=== PATIENT | male | born 1985 | race Caucasian/White ===

== ENCOUNTER 2022-01-04 19:50 | Emergency (ER) | payer SELFPAY ==
[2022-01-04 20:44] VITALS: BP 141/88
== END 2022-01-05 07:00 | disposition left against medical advice (07) ==
LOC: ED 19:50
DX: R10.9 Unspecified abdominal pain (principal); Z53.21 Procedure and treatment not carried out due to patient leaving prior to being seen by health care provider

== ENCOUNTER 2022-01-05 14:11 | Inpatient (IN) | payer SELFPAY ==
[2022-01-05] MEDS ORDERED: SODIUM CHLORIDE 0.9% 1000 ML IV SOLN IV ONE (14:32)
[2022-01-05] MEDS ORDERED: PIPERACIL/TAZOBACTA 4.5/NS 100 4.5 GM/100 ML VIAL IV ONE (14:45)
[2022-01-05] MEDS ORDERED: KETOROLAC 30 MG/1 ML INJ IV ONE (14:46)
[2022-01-05] MEDS ORDERED: ONDANSETRON 4 MG/2 ML INJ IV ONE (14:46)
[2022-01-05] MEDS ORDERED: MORPHINE 4 MG/1 ML INJ IV ONE (14:46)
--- NOTE | 2022-01-05 14:48 | Emergency Department Report ---
ED Abdominal Pain HPI - General Chief Complaint: Abdominal Pain Stated Complaint: SENT OVER BY DOCTOR W/REFERRAL Source: patient Mode of arrival: Ambulatory Limitations: Language Barrier - History of Present Illness Initial Comments: 36-year-old Grenadian-speaking male with no significant past medical or surgical history presents to the hospital complaining of right lower quadrant pain progressively worsening since yesterday. Pain is constant, moderate to severe, worse with palpation, no alleviating factors reported. Positive nausea, vomiting, diarrhea, and fever. Patient was sent here by his primary care doctor for suspicion for appendicitis - Related Data Allergies Allergy/AdvReac Type Severity Reaction Status Date / Time No Known Allergies Allergy Verified 01/05/22 14:28 ED Review of Systems ROS: Stated complaint: SENT OVER BY DOCTOR W/REFERRAL Other details as noted in HPI Comment: All other systems reviewed and negative ED Past Medical Hx - Past Medical History Previous Medical History?: No ED Physical Exam - General Limitations: No Limitations - Other Other exam information: General: Mild discomfort secondary to pain Head: Atraumatic Eyes: normal appearance ENT: Moist mucous membranes Neck: Normal appearance, no midline tenderness Chest: Clear to auscultation bilaterally CV: Regular rate and rhythm Abdomen: Soft, normal bowel sounds, right lower quadrant tenderness. No rebound or guarding Back: Normal inspection Extremity: Normal inspection, full range of motion Neuro: Alert O x 3, no facial asymmetry, speech clear, no gross motor sensory deficit Psych: Appropriate behavior Skin: No rash ED Course Vital Signs 01/05/22 14:25 Temperature 100.2 F H Pulse Rate 117 H Respiratory 20 Rate Blood Pressure 122/85 O2 Sat by Pulse 98 Oximetry - Consultations Consultation #1: 01/05/22 17:01 case d/w Dr Esteves surgeon. Plan to operate tomorrow. npo after midnight ED Medical Decision Making - Lab Data Result diagrams: 01/05/22 14:49 01/05/22 14:49 Lab Results 01/05/22 01/05/22 01/05/22 Range/Units 14:49 14:49 14:49 WBC 16.0 H (4.5-11.0) K/mm3 RBC 4.57 (3.65-5.03) M/mm3 Hgb 14.2 (11.8-15.2) gm/dl Hct 41.7 (35.5-45.6) % MCV 91 (84-94) fl MCH 31 (28-32) pg MCHC 34 (32-34) % RDW 12.5 L (13.2-15.2) % Plt Count 277 (140-440) K/mm3 Lymph % (Auto) 5.8 L (13.4-35.0) % [place] % (Auto) 9.9 H (0.0-7.3) % Eos % (Auto) 0.0 (0.0-4.3) % Baso % (Auto) 0.3 (0.0-1.8) % Lymph # (Auto) 0.9 L (1.2-5.4) K/mm3 [place] # (Auto) 1.6 H (0.0-0.8) K/mm3 Eos # (Auto) 0.0 (0.0-0.4) K/mm3 Baso # (Auto) 0.0 (0.0-0.1) K/mm3 Seg Neutrophils % 84.0 H (40.0-70.0) % Seg Neutrophils # 13.4 H (1.8-7.7) K/mm3 Sodium 134 L (137-145) mmol/L Potassium 3.9 (3.6-5.0) mmol/L Chloride 97.8 L (98-107) mmol/L Carbon Dioxide 25 (22-30) mmol/L Anion Gap 15 mmol/L BUN 10 (9-20) mg/dL Creatinine 0.7 L (0.8-1.3) mg/dL Estimated GFR > 60 ml/min BUN/Creatinine Ratio 14 % Glucose 122 H (75-100) mg/dL Lactic Acid 1.80 (0.7-2.0) mmol/L Calcium 9.5 (8.4-10.2) mg/dL Total Bilirubin 3.20 H (0.1-1.2) mg/dL AST 18 (5-40) units/L ALT 31 (7-56) units/L Alkaline Phosphatase 110 (35-129) units/L Total Protein 7.8 (6.3-8.2) g/dL Albumin 4.9 (3.9-5) g/dL Albumin/Globulin Ratio 1.7 % - Radiology Data Radiology results: report reviewed CT ABDOMEN AND PELVIS WITH CONTRAST INDICATION / CLINICAL INFORMATION: rlq pain. TECHNIQUE: Axial CT images were obtained through the abdomen and pelvis after 100 cc of Omnipaque 300 IV contrast. Sagittal and coronal reformatted images. All CT scans at this location are performed using CT dose reduction for ALARA by means of automated exposure control. COMPARISON: None available. FINDINGS: LOWER CHEST: No significant abnormality. LIVER: No significant abnormality. GALLBLADDER: No significant abnormality. BILE DUCTS: No significant abnormality. PANCREAS: No significant abnormality. SPLEEN: No significant abnormality. ADRENALS: No significant abnormality. RIGHT KIDNEY and URETER: No significant abnormality. LEFT KIDNEY and URETER: No significant abnormality. STOMACH and SMALL BOWEL: No significant abnormality. COLON: No significant abnormality. APPENDIX: The appendix is dilated up to 1.1 cm with mucosal enhancement and surrounding inflammatory change. The appendix is located medial to the cecum at the level of S1. No evidence for rupture at this time. PERITONEUM: No free fluid. No free air. No fluid collection. LYMPH NODES: No significant adenopathy. AORTA and ARTERIES: No significant abnormality. IVC and VEINS: No significant abnormality. URINARY BLADDER: No significant abnormality. REPRODUCTIVE ORGANS: No significant abnormality. ADDITIONAL FINDINGS: None. SKELETAL SYSTEM: No significant abnormality. IMPRESSION: Acute appendicitis. No evidence for rupture at this time. - Medical Decision Making 36-year-old male with no significant past medical history presents the hospital with right lower quadrant pain with CT findings of acute appendicitis. Patient treated with Zofran, IV fluids, and pain medication. Case discussed with surgeon for admission. Translation service used to discuss diagnosis, treatment in the ED, and plan for admission. No sign of severe sepsis or septic shock Critical Care Time: No Critical care attestation.: If time is entered above; I have spent that time in minutes in the direct care of this critically ill patient, excluding procedure time. ED Disposition Clinical Impression: Acute appendicitis Disposition: ADMITTED INPATIENT Is pt being admited?: Yes Condition: Stable Time of Disposition: 16:38 (Dr Wilburn)
[2022-01-05 15:19] LABS: Basophils % (Auto) 0.3 % (0.0-1.8); Hematocrit 41.7 % (35.5-45.6); Hemoglobin 14.2 gm/dl (11.8-15.2); Lymphocytes # (Auto) 0.9 K/mm3 (1.2-5.4); Lymphocytes % (Auto) 5.8 % (13.4-35.0); Mean Corpuscular HGB Conc 34 % (32-34); Mean Corpuscular Volume 91 fl (84-94); Monocytes # (Auto) 1.6 K/mm3 (0.0-0.8); Monocytes % (Auto) 9.9 % (0.0-7.3); Platelet Count 277 K/mm3 (140-440); Red Blood Count 4.57 M/mm3 (3.65-5.03); Red Cell Distribution Width 12.5 % (13.2-15.2)
[2022-01-05 15:46] LABS: Alanine Aminotransferase 31 units/L (7-56); Albumin 4.9 g/dL (3.9-5); Blood Urea Nitrogen 10 mg/dL (9-20); Calcium 9.5 mg/dL (8.4-10.2); Hemolysis Index 28
[2022-01-05 15:48] LABS: BUN/Creatinine Ratio 14
--- NOTE | 2022-01-05 16:27 | Cat Scan Report ---
CT ABDOMEN AND PELVIS WITH CONTRAST INDICATION / CLINICAL INFORMATION: rlq pain. TECHNIQUE: Axial CT images were obtained through the abdomen and pelvis after 100 cc of Omnipaque 300 IV contras t. Sagittal and coronal reformatted images. All CT scans at this location are performed using CT dose reduction for ALARA by means of automated exposure control. COMPARISON: None available. FINDINGS: LOWER CHEST: No significant abnormality. LIVER: No significant abnormality. GALLBLADDER: No significant abnormality. BILE DUCTS: No significant abnormality. PANCREAS: No significant abnormality. SPLEEN: No significant abnormality. ADRENALS: No significant abnormality. RIGHT KIDNEY and URETER: No significant abnormality. LEFT KIDNEY and URETER: No significant abnormality. STOMACH and SMALL BOWEL: No significant abnormality. COLON: No significant abnormality. APPENDIX: The appendix is dilated up to 1.1 cm with mucosal enhancement and surrounding inflammatory change. The appendix is located medial to the cecum at the level of S1. No evidence for rupture at th is time. PERITONEUM: No free fluid. No free air. No fluid collection. LYMPH NODES: No significant adenopathy. AORTA and ARTERIES: No significant abnormality. IVC and VEINS: No significant abnormality. URINARY BLADDER: No significant abnormality. REPRODUCTIVE ORGANS: No significant abnormality. ADDITIONAL FINDINGS: None. SKELETAL SYSTEM: No significant abnormality. IMPRESSION: Acute appendicitis. No evidence for rupture at this time. CRITICAL RESULT: Time of Discovery (LICENSED SALES PRODUCER/CDT): 1519 hours Time of Communication (LICENSED SALES PRODUCER/CDT): 1522 hours Licensed Practitioner Receiving Report: Dr. De Leon Read-Back Performed: Yes. Signer Name: Orlin Main Jr, MD Signed: 01/05/2022 4:23 PM Workstation Name: [id number]
[2022-01-05] MEDS ORDERED: ACETAMINOPHEN 325 MG TAB PO PRN (17:01)
[2022-01-05] MEDS ORDERED: ONDANSETRON 4 MG/2 ML INJ IV PRN ×2 (17:01→21:29)
[2022-01-05] MEDS ORDERED: MORPHINE 2 MG/1 ML INJ IV PRN (17:02)
[2022-01-05 18:57] LABS: Bilirubin,Urine NEG (Negative); Blood,Urine NEG (Negative); Color,Urine Yellow (Yellow); Protein,Urine <15 mg/dL mg/dL (Negative); Urobilinogen,Urine < 2.0 mg/dL (<2.0)
[2022-01-05] MEDS ORDERED: METOCLOPRAMIDE 10 MG/2 ML INJ IV PRN (21:29)
--- NOTE | 2022-01-05 21:36 | History and Physical Report ---
History of Present Illness Date of examination: 01/05/22 Date of admission: 01/05/22 17:01 Chief complaint: Abdominal pain since yesterday Nausea and vomiting since yesterday History of present illness: 36-year-old Burkinan-speaking male with no significant past medical history presents with right lower quadrant pain since yesterday. Associated with nausea and vomiting about 4 times. No fever or chills. Pain is about 8 on a scale of 1-10. Intermittent in nature. No diaphoresis. No exacerbating or relieving factors. No history of any surgeries in the past. From urgent care clinic. Past History Past Medical History: No medical history Past Surgical History: No surgical history Social history: lives with family, full code Family history: no significant family history Medications and Allergies Allergies Allergy/AdvReac Type Severity Reaction Status Date / Time No Known Allergies Allergy Verified 01/05/22 14:28 Home Medications Medication Instructions Recorded Confirmed Last Taken Type No Known Home Medications [No 01/05/22 01/05/22 Unknown History Reported Home Medications] Active Meds: Active Medications Acetaminophen (Acetaminophen 325 Mg Tab) 650 mg PO Q4H PRN PRN Reason: Pain MILD(1-3)/Fever >100.5/ORTIZ Morphine Sulfate (Morphine 2 Mg/1 Ml Inj) 4 mg IV Q4H PRN PRN Reason: Pain, Moderate (4-6) Ondansetron HCl (Ondansetron 4 Mg/2 Ml Inj) 4 mg IV Q8H PRN PRN Reason: Nausea And Vomiting Sodium Chloride (Sodium Chloride 0.9% 10 Ml Flush Syringe) 10 ml IV BID HILARIA Sodium Chloride (Sodium Chloride 0.9% 10 Ml Flush Syringe) 10 ml IV PRN PRN PRN Reason: LINE FLUSH Review of Systems All systems: negative Gastrointestinal: abdominal pain, nausea, vomiting Exam - Constitutional Vitals: Temp Pulse Resp BP Pulse Ox 100.2 F H 86 11 L 123/69 97 01/05/22 14:25 01/05/22 18:00 01/05/22 18:00 01/05/22 15:01 01/05/22 18:00 General appearance: Present: no acute distress, well-nourished - EENT Eyes: Present: PERRL ENT: hearing intact, clear oral mucosa - Neck Neck: Present: supple, normal ROM - Respiratory Respiratory effort: normal Respiratory: bilateral: CTA - Cardiovascular Heart rate: 78 Rhythm: regular Heart Sounds: Present: S1 & S2. Absent: rub, click - Extremities Extremities: no ischemia, pulses symmetrical, No edema Peripheral Pulses: within normal limits - Abdominal General gastrointestinal: Present: soft, non-tender, non-distended, normal bowel sounds Localized gastrointestinal: tender: RLQ, guarding: RLQ, rebound: RLQ Male genitourinary: Present: normal - Rectal Rectal Exam: deferred - Integumentary Integumentary: Present: clear, warm, dry - Musculoskeletal Musculoskeletal: gait normal, strength equal bilaterally - Psychiatric Psychiatric: appropriate mood/affect, intact judgment & insight - Neurologic Neurologic: CNII-XII intact, moves all extremities - Allied Health Allied health notes reviewed: nursing, case management Results - Labs CBC & Chem 7: 01/06/22 05:31 01/06/22 05:31 Labs: Laboratory Last Values WBC 16.0 K/mm3 (4.5-11.0) H 01/05/22 14:49 RBC 4.57 M/mm3 (3.65-5.03) 01/05/22 14:49 Hgb 14.2 gm/dl (11.8-15.2) 01/05/22 14:49 Hct 41.7 % (35.5-45.6) 01/05/22 14:49 MCV 91 fl (84-94) 01/05/22 14:49 MCH 31 pg (28-32) 01/05/22 14:49 MCHC 34 % (32-34) 01/05/22 14:49 RDW 12.5 % (13.2-15.2) L 01/05/22 14:49 Plt Count 277 K/mm3 (140-440) 01/05/22 14:49 Lymph % (Auto) 5.8 % (13.4-35.0) L 01/05/22 14:49 [place] % (Auto) 9.9 % (0.0-7.3) H 01/05/22 14:49 Eos % (Auto) 0.0 % (0.0-4.3) 01/05/22 14:49 Baso % (Auto) 0.3 % (0.0-1.8) 01/05/22 14:49 Lymph # (Auto) 0.9 K/mm3 (1.2-5.4) L 01/05/22 14:49 [place] # (Auto) 1.6 K/mm3 (0.0-0.8) H 01/05/22 14:49 Eos # (Auto) 0.0 K/mm3 (0.0-0.4) 01/05/22 14:49 Baso # (Auto) 0.0 K/mm3 (0.0-0.1) 01/05/22 14:49 Seg Neutrophils % 84.0 % (40.0-70.0) H 01/05/22 14:49 Seg Neutrophils # 13.4 K/mm3 (1.8-7.7) H 01/05/22 14:49 Sodium 134 mmol/L (137-145) L 01/05/22 14:49 Potassium 3.9 mmol/L (3.6-5.0) 01/05/22 14:49 Chloride 97.8 mmol/L (98-107) L 01/05/22 14:49 Carbon Dioxide 25 mmol/L (22-30) 01/05/22 14:49 Anion Gap 15 mmol/L 01/05/22 14:49 BUN 10 mg/dL (9-20) 01/05/22 14:49 Creatinine 0.7 mg/dL (0.8-1.3) L 01/05/22 14:49 Estimated GFR > 60 ml/min 01/05/22 14:49 BUN/Creatinine Ratio 14 % 01/05/22 14:49 Glucose 122 mg/dL (75-100) H 01/05/22 14:49 Lactic Acid 0.80 mmol/L (0.7-2.0) 01/05/22 17:21 Calcium 9.5 mg/dL (8.4-10.2) 01/05/22 14:49 Total Bilirubin 3.20 mg/dL (0.1-1.2) H 01/05/22 14:49 AST 18 units/L (5-40) 01/05/22 14:49 ALT 31 units/L (7-56) 01/05/22 14:49 Alkaline Phosphatase 110 units/L (35-129) 01/05/22 14:49 Total Protein 7.8 g/dL (6.3-8.2) 01/05/22 14:49 Albumin 4.9 g/dL (3.9-5) 01/05/22 14:49 Albumin/Globulin Ratio 1.7 % 01/05/22 14:49 Urine Color Yellow (Yellow) 01/05/22 14:31 Urine Turbidity Clear (Clear) 01/05/22 14:31 Urine pH 6.0 (5.0-7.0) 01/05/22 14:31 Ur Specific [place] 1.041 (1.003-1.030) H 01/05/22 14:31 Urine Protein <15 mg/dl mg/dL (Negative) 01/05/22 14:31 Urine Glucose (UA) 50 mg/dL (Negative) 01/05/22 14:31 Urine Ketones Neg mg/dL (Negative) 01/05/22 14:31 Urine Blood Neg (Negative) 01/05/22 14:31 Urine Nitrite Neg (Negative) 01/05/22 14:31 Urine Bilirubin Neg (Negative) 01/05/22 14:31 Urine Urobilinogen < 2.0 mg/dL (<2.0) 01/05/22 14:31 Ur Leukocyte Esterase Neg (Negative) 01/05/22 14:31 Urine WBC (Auto) 2.0 /HPF (0.0-6.0) 01/05/22 14:31 Urine RBC (Auto) 5.0 /HPF (0.0-6.0) 01/05/22 14:31 U Epithel Cells (Auto) < 1.0 /HPF (0-13.0) 01/05/22 14:31 Short CBC 01/05/22 01/06/22 Range/Units 14:49 05:31 WBC 16.0 H 7.1 (4.5-11.0) K/mm3 Hgb 14.2 13.2 (11.8-15.2) gm/dl Hct 41.7 38.8 (35.5-45.6) % Plt Count 277 229 (140-440) K/mm3 BMP 01/05/22 01/06/22 14:49 05:31 Sodium 134 L 136 L Potassium 3.9 3.5 L Chloride 97.8 L 102.7 Carbon Dioxide 25 22 BUN 10 11 Creatinine 0.7 L 0.8 Glucose 122 H 125 H Calcium 9.5 8.1 L Liver Function 01/05/22 01/06/22 Range/Units 14:49 05:31 Total Bilirubin 3.20 H 3.10 H (0.1-1.2) mg/dL AST 18 10 (5-40) units/L ALT 31 19 (7-56) units/L Alkaline Phosphatase 110 83 (35-129) units/L Albumin 4.9 3.9 (3.9-5) g/dL Urine 01/05/22 Range/Units 14:31 Urine Color Yellow (Yellow) Urine pH 6.0 (5.0-7.0) Ur Specific [place] 1.041 H (1.003-1.030) Urine Protein <15 mg/dl (Negative) mg/dL Urine Glucose (UA) 50 (Negative) mg/dL Microbiology: Microbiology 01/05/22 14:49 Peripheral/Venous Blood Culture - Preliminary Culture in Progress 01/05/22 14:49 Peripheral/Venous Blood Culture - Preliminary Culture in Progress - Imaging and Cardiology Imaging and Cardiology: Abdominal CAT scan Appendix is dilated up to 1.1 cm with mucosal enhancement and surrounding inflammatory change. The appendix is located medial to the cecum at the level of S1. No evidence for rupture at this time. Assessment and Plan Advance Directives: Yes (Full code) VTE prophylaxis?: Chemical Plan of care discussed with patient/family: Yes - Patient Problems (1) SIRS (systemic inflammatory response syndrome) Current Visit: Yes Status: Acute Plan to address problem: Patient has leukocytosis Other inflammatory markers were not done (2) Acute appendicitis Current Visit: Yes Status: Acute Plan to address problem: Patient has acute appendicitis IV Zosyn initiated IV analgesics as necessary IV Zofran as necessary Surgery consult requested (3) Hyponatremia Current Visit: Yes Status: Acute Plan to address problem: Mild IV normal saline for now (4) DVT prophylaxis Current Visit: Yes Status: Acute Plan to address problem: On anticoagulation and GI prophylaxis (5) Advance care planning Current Visit: Yes Status: Acute Plan to address problem: Disease education conducted, care plan discussed, diagnosis discussed, prognosis prognosis discussed. Patient is full code. Patient acknowledges understanding and agreement with care plan +30 minutes.
[2022-01-05] MEDS: FAMOTIDINE 20 MG/2 ML INJ IV SCH (22:15)
[2022-01-05] MEDS: PIPERACIL/TAZOBACTA 4.5/NS 100 4.5 GM/100 ML VIAL IV SCH (22:15)
[2022-01-05] MEDS: SODIUM CHLORIDE 0.9% 1000 ML 1,000 ML IV SCH (22:21)
[2022-01-05] MEDS: ACETAMINOPHEN 325 MG TAB PO PRN (22:58)
[2022-01-06] MEDS: ACETAMINOPHEN 325 MG TAB PO PRN (04:58)
[2022-01-06 05:52] LABS: Basophils % (Auto) 0.2 % (0.0-1.8); Hematocrit 38.8 % (35.5-45.6); Hemoglobin 13.2 gm/dl (11.8-15.2); Lymphocytes # (Auto) 0.6 K/mm3 (1.2-5.4); Lymphocytes % (Auto) 8.4 % (13.4-35.0); Mean Corpuscular HGB Conc 34 % (32-34); Mean Corpuscular Volume 92 fl (84-94); Monocytes # (Auto) 0.4 K/mm3 (0.0-0.8); Monocytes % (Auto) 6.1 % (0.0-7.3); Platelet Count 229 K/mm3 (140-440); Red Cell Distribution Width 12.5 % (13.2-15.2)
[2022-01-06 06:10] LABS: Alanine Aminotransferase 19 units/L (7-56); Albumin 3.9 g/dL (3.9-5); BUN/Creatinine Ratio 14; Blood Urea Nitrogen 11 mg/dL (9-20); Calcium 8.1 mg/dL (8.4-10.2); Hemolysis Index 3
[2022-01-06] MEDS: PIPERACIL/TAZOBACTA 4.5/NS 100 4.5 GM/100 ML VIAL IV SCH ×3 (06:11→23:33)
[2022-01-06] MEDS ORDERED: ROCURONIUM 50 MG/5 ML INJ IV ONE (07:08)
[2022-01-06] MEDS ORDERED: LIDOCAINE MPF (2%) 20 MG/1 ML VIAL 5 ML ONE (07:08)
[2022-01-06] MEDS ORDERED: fentaNYL 100 MCG/2 ML INJ ONE (07:09)
[2022-01-06] MEDS ORDERED: propofoL 200 MG/20 ML VIAL IV ONE (07:09)
[2022-01-06] MEDS ORDERED: LIDOCAINE (1%) 10 MG/1 ML VIAL 20 ML MDV ONE (07:11)
[2022-01-06] MEDS ORDERED: BUPIVACAINE/PF (0.5%) 5 MG/1 ML 30 ML VIAL INFILTRATI ONE ×2 (07:11→07:54)
--- NOTE | 2022-01-06 07:20 | Consultation ---
History of Present Illness Consult date: 01/06/22 Reason for consult: abdominal pain Chief complaint: abd pain - History of present illness History of present illness: 36-year-old male with no past medical history who presents to the emergency room with 2-day history of right-sided abdominal pain. He has never had pain like this before. The pain is sharp and is localized to the right lower quadrant but does radiate to the right upper quadrant. No alleviating or exacerbating factors. He states he had multiple episodes of nonbilious/nonbloody emesis. He has been febrile. Work-up in the emergency room including labs and CT scan was performed. The patient was found to have a leukocytosis and acute nonperforated appendicitis on CT scan. Surgery is consulted for further evaluation. Patient has been NPO. Past History Past Medical History: No medical history Past Surgical History: No surgical history Social history: lives with family, alcohol abuse (6 drinks every 3 days), full code. denies: smoking, IV drug use Family history: no significant family history Medications and Allergies Allergies Allergy/AdvReac Type Severity Reaction Status Date / Time No Known Allergies Allergy Verified 01/05/22 14:28 Home Medications Medication Instructions Recorded Confirmed Last Taken Type No Known Home Medications [No 01/05/22 01/05/22 Unknown History Reported Home Medications] Active Meds: Active Medications Acetaminophen (Acetaminophen 325 Mg Tab) 650 mg PO Q4H PRN PRN Reason: Pain MILD(1-3)/Fever >100.5/ORTIZ Last Admin: 01/06/22 04:58 Dose: 650 mg Famotidine (Famotidine 20 Mg/2 Ml Inj) 20 mg IV BID HILARIA Last Admin: 01/05/22 22:15 Dose: 20 mg Sodium Chloride (Nacl 0.9% 1000 Ml) 1,000 mls @ 100 mls/hr IV DIRECT HILARIA Last Admin: 01/05/22 22:21 Dose: 100 mls/hr Piperacillin Sod/Tazobactam Sod (Zosyn/Ns 4.5gm/100ml) 4.5 gm in 100 mls @ 200 mls/hr IV Q8H HILARIA; Protocol Last Admin: 01/06/22 06:11 Dose: 200 mls/hr Metoclopramide HCl (Metoclopramide 10 Mg/2 Ml Inj) 10 mg IV Q6H PRN PRN Reason: Nausea And Vomiting Morphine Sulfate (Morphine 2 Mg/1 Ml Inj) 4 mg IV Q4H PRN PRN Reason: Pain, Moderate (4-6) Ondansetron HCl (Ondansetron 4 Mg/2 Ml Inj) 4 mg IV Q8H PRN PRN Reason: Nausea And Vomiting Sodium Chloride (Sodium Chloride 0.9% 10 Ml Flush Syringe) 10 ml IV BID HILRAIA Last Admin: 01/05/22 22:26 Dose: 10 ml Sodium Chloride (Sodium Chloride 0.9% 10 Ml Flush Syringe) 10 ml IV PRN PRN PRN Reason: LINE FLUSH Review of Systems All systems: negative (10 point ROS performed and negative except for that listed in HPI) Exam Vital Signs Temp Pulse Resp BP Pulse Ox 100.2 F H 117 H 20 122/85 98 01/05/22 14:25 01/05/22 14:25 01/05/22 14:25 01/05/22 14:25 01/05/22 14:25 Narrative exam: Gen.: Awake, alert, oriented x3. No apparent distress ENT: Trachea midline. No lymphadenopathy. No scleral icterus or conjunctival pallor CV: S1, S2 present Respiratory: No audible wheezes Abdomen: Soft, nondistended. Tenderness to palpation in the right lower quadrant. + Voluntary guarding. no rebound, rigidity Extremities: No clubbing, cyanosis, edema Results - Labs 01/06/22 05:31 01/06/22 05:31 Abnormal lab results 01/05/22 01/05/22 01/05/22 Range/Units 14:31 14:49 14:49 WBC 16.0 H (4.5-11.0) K/mm3 RDW 12.5 L (13.2-15.2) % Lymph % (Auto) 5.8 L (13.4-35.0) % [place] % (Auto) 9.9 H (0.0-7.3) % Lymph # (Auto) 0.9 L (1.2-5.4) K/mm3 [place] # (Auto) 1.6 H (0.0-0.8) K/mm3 Seg Neutrophils % 84.0 H (40.0-70.0) % Seg Neutrophils # 13.4 H (1.8-7.7) K/mm3 Sodium 134 L (137-145) mmol/L Potassium (3.6-5.0) mmol/L Chloride 97.8 L (98-107) mmol/L Creatinine 0.7 L (0.8-1.3) mg/dL Glucose 122 H (75-100) mg/dL Calcium (8.4-10.2) mg/dL Total Bilirubin 3.20 H (0.1-1.2) mg/dL Total Protein (6.3-8.2) g/dL Ur Specific [place] 1.041 H (1.003-1.030) 01/06/22 01/06/22 Range/Units 05:31 05:31 WBC (4.5-11.0) K/mm3 RDW 12.5 L (13.2-15.2) % Lymph % (Auto) 8.4 L (13.4-35.0) % [place] % (Auto) (0.0-7.3) % Lymph # (Auto) 0.6 L (1.2-5.4) K/mm3 [place] # (Auto) (0.0-0.8) K/mm3 Seg Neutrophils % 85.3 H (40.0-70.0) % Seg Neutrophils # (1.8-7.7) K/mm3 Sodium 136 L (137-145) mmol/L Potassium 3.5 L (3.6-5.0) mmol/L Chloride (98-107) mmol/L Creatinine (0.8-1.3) mg/dL Glucose 125 H (75-100) mg/dL Calcium 8.1 L (8.4-10.2) mg/dL Total Bilirubin 3.10 H (0.1-1.2) mg/dL Total Protein 6.2 L D (6.3-8.2) g/dL Ur Specific [place] (1.003-1.030) Diabetes panel 01/05/22 01/06/22 Range/Units 14:49 05:31 Sodium 134 L 136 L (137-145) mmol/L Potassium 3.9 3.5 L (3.6-5.0) mmol/L Chloride 97.8 L 102.7 (98-107) mmol/L Carbon Dioxide 25 22 (22-30) mmol/L BUN 10 11 (9-20) mg/dL Creatinine 0.7 L 0.8 (0.8-1.3) mg/dL Glucose 122 H 125 H (75-100) mg/dL Calcium 9.5 8.1 L (8.4-10.2) mg/dL AST 18 10 (5-40) units/L ALT 31 19 (7-56) units/L Alkaline Phosphatase 110 83 (35-129) units/L Total Protein 7.8 6.2 L D (6.3-8.2) g/dL Albumin 4.9 3.9 (3.9-5) g/dL Calcium panel 01/05/22 01/06/22 Range/Units 14:49 05:31 Calcium 9.5 8.1 L (8.4-10.2) mg/dL Albumin 4.9 3.9 (3.9-5) g/dL Pituitary panel 01/05/22 01/06/22 Range/Units 14:49 05:31 Sodium 134 L 136 L (137-145) mmol/L Potassium 3.9 3.5 L (3.6-5.0) mmol/L Chloride 97.8 L 102.7 (98-107) mmol/L Carbon Dioxide 25 22 (22-30) mmol/L BUN 10 11 (9-20) mg/dL Creatinine 0.7 L 0.8 (0.8-1.3) mg/dL Glucose 122 H 125 H (75-100) mg/dL Calcium 9.5 8.1 L (8.4-10.2) mg/dL Adrenal panel 01/05/22 01/06/22 Range/Units 14:49 05:31 Sodium 134 L 136 L (137-145) mmol/L Potassium 3.9 3.5 L (3.6-5.0) mmol/L Chloride 97.8 L 102.7 (98-107) mmol/L Carbon Dioxide 25 22 (22-30) mmol/L BUN 10 11 (9-20) mg/dL Creatinine 0.7 L 0.8 (0.8-1.3) mg/dL Glucose 122 H 125 H (75-100) mg/dL Calcium 9.5 8.1 L (8.4-10.2) mg/dL Total Bilirubin 3.20 H 3.10 H (0.1-1.2) mg/dL AST 18 10 (5-40) units/L ALT 31 19 (7-56) units/L Alkaline Phosphatase 110 83 (35-129) units/L Total Protein 7.8 6.2 L D (6.3-8.2) g/dL Albumin 4.9 3.9 (3.9-5) g/dL - Imaging CT scan - abdomen: report reviewed, image reviewed CT scan - pelvis: report reviewed, image reviewed Assessment and Plan 36-year-old male with 1. Acute appendicitis 2. Sepsis secondary to #1 Plan: 1. NPO 2. IVF 3. IV abx 4. DVT and GI ppx 5. prn pain and nausea control 6. Recommend appendectomy. I discussed all risks, benefits, alternatives to surgery with the patient. All questions were answered and he is agreeable to proceed. Consent obtained. We will proceed to the OR today. Thank you for this consultation. Please call with any questions or concerns. Evaluation and treatment of this patient was during the time of the national and state emergency arising from COVID19 coronavirus pandemic. Treatment and procedures performed meet the current and available best practice and guidelines for patient during the COVID pandemic.
[2022-01-06] MEDS ORDERED: HYDROmorphone 1 MG/1 ML INJ IV PRN (07:27)
--- NOTE | 2022-01-06 07:28 | Anesthesia Consultation ---
Anesthesia Consult and Med Hx Date of service: 01/06/22 - Airway Anesthetic Teeth Evaluation: Good, Crowns (3 metal crowns (3,9,10)) ROM Head & Neck: Adequate Mental/Hyoid Distance: Adequate Mallampati Class: Class II Intubation Access Assessment: Probably Good - Pre-Operative Health Status ASA Pre-Surgery Classification: ASA1 Proposed Anesthetic Plan: General - Gastrointestinal Hx Gastroesophageal Reflux Disease: No - Other Systems Hx Cancer: No - Additional Comments Anesthesia Medical History Comments: Acute appendicitis
--- NOTE | 2022-01-06 07:29 | Anesthesia Day of Surgery ---
Anesthesia Day of Surgery - Day of Surgery Patient Examined: Yes Patient H&P Reviewed: Yes Patient is NPO: Yes
[2022-01-06] MEDS ORDERED: ONDANSETRON 4 MG/2 ML INJ ONE (07:52)
[2022-01-06] MEDS ORDERED: LACTATED RINGERS 1,000 ML ONE (07:52)
[2022-01-06] MEDS ORDERED: dexAMETHasone 20 MG/5 ML VIAL ONE (07:52)
[2022-01-06] MEDS ORDERED: LIDOCAINE (1%) 10 MG/1 ML VIAL 20 ML MDV INFILTRATI ONE (07:54)
[2022-01-06] MEDS ORDERED: SODIUM CHLORIDE 0.9% IRR 1,500 ML BOTTLE IR ONE (07:54)
[2022-01-06] MEDS ORDERED: SODIUM CHLORIDE 0.9% IRRIG SOLN 2000 ML IR ONE (07:54)
[2022-01-06] MEDS ORDERED: HYDROcodone/ACETAMINOPHEN 5-325 MG TAB PO PRN (08:42)
[2022-01-06] MEDS ORDERED: MORPHINE 2 MG/1 ML INJ IV PRN (08:43)
--- NOTE | 2022-01-06 08:46 | Operative Report ---
Operative Report Operative Report: Date of operation: 01/06/2022 Preoperative diagnosis: acute appendicitis Postoperative diagnosis: Acute gangrenous appendicitis with abscess Procedure performed: Laparoscopic appendectomy Surgeon: Flavia Esteves DO Anesthesia: GETA, local Findings: Gangrenous appendix with thickening and inflammation. Pus in the pelvis and right lower quadrant EBL:<10cc Specimen: appendix Disposition/Condition: stable to PACU HPI and indication: 36 yo F who presented to ER with RLQ pain, n/v x 2 days. He was found to have an elevated WBC and acute appendicitis on CT scan. Appendectomy was recommended. All risks, benefits, alternatives to surgery were discussed with the patient questions answered. Consent was obtained. Procedure in detail: Patient was identified in the preop area and taken back to the OR and placed on the OR table in supine position. After anesthesia was induced a murray catheter was steriley placed by the circulating nurse. The left arm was tucked and all bony prominences padded appropriately. the abdomen was prepped and draped in the usual sterile fashion and a timeout performed. Local anesthetic was infilitrated into all skin incision sites. A supraumbilical incision was made and veress needle inserted. The positioning of the veress needle was confirmed using the saline drop test. The abdomen was insufflated to 15 mmHg without incident. The veress needle was removed and a 5mm Optiview trocar was placed through the supraumbilical incision. The abdomen was inspected and no underlying injury to the abdominal structures was identified. The patient was placed in Trendelenburg and tilted to the left. A 12 mm LLQ trocar and 5 mm suprapubic trocar were placed under direct visualization. The terminal ileum was identified and was inflamed, and adhered to the appendix. These adhesions were taken down using blunt dissection and the small bowel was retracted cephalad in order to expose the appendix. The appendix was adhered to the pelvic sidewall. There was also shahnaz purulent fluid in the right lower quadrant and pelvis. The fluid was evacuated using the suction personal fitness manager. The appendix was bluntly dissected from the pelvic sidewall using the suction personal fitness manager. Once the appendix was completely freed the base was identified. The appendix was gangrenous and severely inflamed as was the mesentery. The appendix was grasped and retracted cephalad. The mesentery was ligated using the harmonic scalpel until the base was encountered. The base of the appendix was stapled across using an [place] flex 45 mm white load stapler. The base of the appendix did appear normal and the staple line was satisfactory. The appendix was placed into an endocatch bag and removed via the 12 mm port. This was passed off the table as specimen. The staple line and mesentery were then inspected and no bleeding visualized. The right lower quadrant and pelvis were irrigated until the irrigant was returned clear. A 19 [place] Jared drain was placed in the pelvis and right lower quadrant and brought out through the suprapubic trocar. This was sutured to the skin using a 2-0 nylon drain stitch. The patient was placed in neutral position. The 12 mm port fascia was closed with interrupted 0 vicryl stitch x2 using the Earl Lozada device. The remaining port was removed under direct visualization and the abdomen desufflated. All skin incisions were closed using 4-0 monocryl subcuticular stitches and skin glue. Local anesthetic was once again infiltrated into all skin incision sites. A drain sponge was applied to the POLLO drain and secured with a Tegaderm. At the end of the case, all sponge, instrument, sharp counts were correct x2. The patient was awoken from anesthesia, murray catheter removed, and he was taken to PACU in stable condition.
[2022-01-06] MEDS ORDERED: SUGAMMADEX SODIUM 200 MG/2 ML VIAL IV ONE (08:47)
[2022-01-06] MEDS: FAMOTIDINE 20 MG/2 ML INJ IV SCH ×2 (10:26→21:48)
--- NOTE | 2022-01-06 10:34 | Post Anesthesia Evaluation ---
- Post Anesthesia Evaluation Patient Participated: Yes Airway Patent: Yes Stable Respiratory Function: Yes Nausea/Vomiting: No Temp > 96.8F: Yes Pain Manageable: Yes Adequeate Hydration: Yes (BP at preop baseline) Anesthesia Complications: No
[2022-01-06] MEDS: KETOROLAC 30 MG/1 ML INJ IV SCH ×2 (11:52→18:32)
[2022-01-06] MEDS: SODIUM CHLORIDE 0.9% 1000 ML 1,000 ML IV SCH (16:31)
--- NOTE | 2022-01-06 23:42 | Progress Note ---
Assessment and Plan (1) SIRS (systemic inflammatory response syndrome) Current Visit: Yes Status: Acute Plan to address problem: Patient has leukocytosis Other inflammatory markers were not done (2) Acute appendicitis Current Visit: Yes Status: Acute Plan to address problem: Patient has acute appendicitis IV Zosyn initiated IV analgesics as necessary IV Zofran as necessary Surgery consult requested (3) Hyponatremia Current Visit: Yes Status: Acute Plan to address problem: Mild IV normal saline for now (4) DVT prophylaxis Current Visit: Yes Status: Acute Plan to address problem: On anticoagulation and GI prophylaxis (5) Advance care planning Current Visit: Yes Status: Acute Plan to address problem: Disease education conducted, care plan discussed, diagnosis discussed, prognosis prognosis discussed. Patient is full code. Patient acknowledges understanding and agreement with care plan +30 minutes. Subjective Date of service: 01/06/22 Objective - Constitutional Vitals: Vital Signs - 12hr 01/06/22 01/06/22 15:20 21:36 Temperature 98.8 F 101.5 F H Pulse Rate 91 H 107 H Respiratory 18 18 Rate Blood Pressure 81/40 123/68 O2 Sat by Pulse 95 94 Oximetry - Labs CBC & Chem 7: 01/06/22 05:31 01/06/22 05:31 Labs: Abnormal lab results 01/06/22 01/06/22 Range/Units 05:31 05:31 RDW 12.5 L (13.2-15.2) % Lymph % (Auto) 8.4 L (13.4-35.0) % Lymph # (Auto) 0.6 L (1.2-5.4) K/mm3 Seg Neutrophils % 85.3 H (40.0-70.0) % Sodium 136 L (137-145) mmol/L Potassium 3.5 L (3.6-5.0) mmol/L Glucose 125 H (75-100) mg/dL Calcium 8.1 L (8.4-10.2) mg/dL Total Bilirubin 3.10 H (0.1-1.2) mg/dL Total Protein 6.2 L D (6.3-8.2) g/dL
[2022-01-07] MEDS: KETOROLAC 30 MG/1 ML INJ IV SCH ×3 (01:46→16:22)
[2022-01-07] MEDS: SODIUM CHLORIDE 0.9% 1000 ML 1,000 ML IV SCH ×2 (05:00→14:13)
[2022-01-07] MEDS: PIPERACIL/TAZOBACTA 4.5/NS 100 4.5 GM/100 ML VIAL IV SCH ×3 (06:18→22:21)
[2022-01-07] MEDS: FAMOTIDINE 20 MG TAB PO SCH ×2 (09:37→21:34)
[2022-01-07] MEDS ORDERED: SCOPOLAMINE TRANSDERMAL PATCH 72 HR TD SCH (10:00)
[2022-01-07 10:48] LABS: BUN/Creatinine Ratio 21; Blood Urea Nitrogen 17 mg/dL (9-20); Calcium 8.7 mg/dL (8.4-10.2); Hemolysis Index 4
[2022-01-07 10:51] LABS: Bilirubin,Direct 0.4 mg/dL (0-0.2)
--- NOTE | 2022-01-07 12:54 | Post Anesthesia Evaluation ---
- Post Anesthesia Evaluation Patient Participated: Yes Airway Patent: Yes Stable Respiratory Function: Yes Nausea/Vomiting: No Temp > 96.8F: Yes Pain Manageable: Yes Adequeate Hydration: Yes Anesthesia Complications: No Block Receding Appropriately: Not Applicable Patient on Ventilator: No
--- NOTE | 2022-01-07 15:48 | Progress Note ---
Assessment and Plan 36 yo M with 1. acute gangrenous appendicitis with abscess 2. sepsis 2/2 #1 Plan: 1. adv to soft diet in am 2. gentle IVF 3. OOB/ambulate 4. prn pain and nausea control 5. IV abx - may transition to augmentin upon dc x 14 days total 6. POLLO drain - monitor output. Likely will dc prior to discharge 7. DC planning in am Thank you, please call with questions. Subjective Date of service: 01/07/22 Narrative: Pt seen and examined. Had one episode of n/v overnight and fever. Since then he states he feels better. Lissa FLD. Having diarrhea. OOB to bathroom. Pain well controlled Objective Vital Signs - 12hr 01/07/22 01/07/22 01/07/22 04:13 09:37 10:00 Temperature 99.3 F Pulse Rate 98 H Respiratory 18 18 18 Rate Blood Pressure 97/54 O2 Sat by Pulse 91 99 Oximetry 01/07/22 10:56 Temperature 97.9 F Pulse Rate 86 Respiratory 18 Rate Blood Pressure 108/64 O2 Sat by Pulse 97 Oximetry - General physical appearance Narrative Exam: Gen: AAOx3. NAD CV: S1, S2+ RESP: even and unlabored ABD: soft, ND, + TTP near incisions - appropriate. Pollo drain serosang. EXT: no c/c/e - Labs 01/06/22 05:31 01/07/22 10:01 Diabetes panel 01/07/22 Range/Units 10:01 Sodium 138 (137-145) mmol/L Potassium 3.4 L (3.6-5.0) mmol/L Chloride 105.0 (98-107) mmol/L Carbon Dioxide 24 (22-30) mmol/L BUN 17 (9-20) mg/dL Creatinine 0.8 (0.8-1.3) mg/dL Glucose 128 H (75-100) mg/dL Calcium 8.7 (8.4-10.2) mg/dL Calcium panel 01/07/22 Range/Units 10:01 Calcium 8.7 (8.4-10.2) mg/dL Pituitary panel 01/07/22 Range/Units 10:01 Sodium 138 (137-145) mmol/L Potassium 3.4 L (3.6-5.0) mmol/L Chloride 105.0 (98-107) mmol/L Carbon Dioxide 24 (22-30) mmol/L BUN 17 (9-20) mg/dL Creatinine 0.8 (0.8-1.3) mg/dL Glucose 128 H (75-100) mg/dL Calcium 8.7 (8.4-10.2) mg/dL Adrenal panel 01/07/22 01/07/22 Range/Units 10:01 10:01 Sodium 138 (137-145) mmol/L Potassium 3.4 L (3.6-5.0) mmol/L Chloride 105.0 (98-107) mmol/L Carbon Dioxide 24 (22-30) mmol/L BUN 17 (9-20) mg/dL Creatinine 0.8 (0.8-1.3) mg/dL Glucose 128 H (75-100) mg/dL Calcium 8.7 (8.4-10.2) mg/dL Total Bilirubin 1.90 H (0.1-1.2) mg/dL
--- NOTE | 2022-01-07 16:08 | Progress Note ---
Assessment and Plan 36-year-old Yi-speaking male with no significant past medical history presents with right lower quadrant pain (1) SIRS (systemic inflammatory response syndrome) Current Visit: Yes Status: Acute Plan to address problem: Patient has leukocytosis Other inflammatory markers were not done (2) Acute appendicitis Current Visit: Yes Status: Acute Plan to address problem: Patient has acute appendicitis IV Zosyn initiated IV analgesics as necessary IV Zofran as necessary Surgery consult requested, s/p appendectomy on 01/06 with drain placed (3) Hyponatremia Current Visit: Yes Status: Acute Plan to address problem: Mild IV normal saline for now (4) DVT prophylaxis Current Visit: Yes Status: Acute Plan to address problem: On anticoagulation and GI prophylaxis (5) Advance care planning Current Visit: Yes Status: Acute Plan to address problem: Disease education conducted, care plan discussed, diagnosis discussed, prognosis prognosis discussed. Patient is full code. Patient acknowledges understanding and agreement with care plan +30 minutes. -- cont to follow clinically. cont iv abx, monitor drain output, plan for dc tomorrow Subjective Date of service: 01/07/22 Interval history: patient seen and examined, denies any pain, tolerating diet, vitals stable Objective - Constitutional Vitals: Vital Signs - 12hr 01/07/22 01/07/22 01/07/22 04:13 09:37 10:00 Temperature 99.3 F Pulse Rate 98 H Respiratory 18 18 18 Rate Blood Pressure 97/54 O2 Sat by Pulse 91 99 Oximetry 01/07/22 10:56 Temperature 97.9 F Pulse Rate 86 Respiratory 18 Rate Blood Pressure 108/64 O2 Sat by Pulse 97 Oximetry General appearance: Present: no acute distress, well-nourished - EENT Eyes: PERRL, EOM intact ENT: hearing intact, clear oral mucosa Ears: bilateral: normal - Neck Neck: supple, normal ROM - Respiratory Respiratory effort: normal Respiratory: bilateral: CTA - Breasts Breasts: normal - Cardiovascular Rhythm: regular Heart Sounds: Present: S1 & S2. Absent: gallop, rub Extremities: pulses intact, No edema, normal color, Full ROM - Gastrointestinal General gastrointestinal: Present: soft, non-tender, non-distended, normal bowel sounds, other (RLQ drain in place) - Integumentary Integumentary: clear, warm, dry - Musculoskeletal Musculoskeletal: 1, strength equal bilaterally - Neurologic Neurologic: moves all extremities - Psychiatric Psychiatric: memory intact, appropriate mood/affect, intact judgment & insight - Labs CBC & Chem 7: 01/06/22 05:31 01/07/22 10:01 Labs: Abnormal lab results 01/07/22 01/07/22 Range/Units 10:01 10:01 Potassium 3.4 L (3.6-5.0) mmol/L Glucose 128 H (75-100) mg/dL Total Bilirubin 1.90 H (0.1-1.2) mg/dL Direct Bilirubin 0.4 H (0-0.2) mg/dL
[2022-01-07] MEDS: ACETAMINOPHEN 325 MG TAB PO PRN (22:32)
[2022-01-08] MEDS: KETOROLAC 30 MG/1 ML INJ IV SCH ×2 (00:46→08:48)
[2022-01-08] MEDS: SODIUM CHLORIDE 0.9% 1000 ML 1,000 ML IV SCH (02:35)
[2022-01-08 05:22] VITALS: BP 103/55
[2022-01-08] MEDS: PIPERACIL/TAZOBACTA 4.5/NS 100 4.5 GM/100 ML VIAL IV SCH (06:03)
[2022-01-08] MEDS: FAMOTIDINE 20 MG TAB PO SCH (09:08)
--- NOTE | 2022-01-08 11:05 | Progress Note ---
Assessment and Plan 36 yo M s/p lap appy, POD 2 1. acute gangrenous appendicitis with abscess 2. sepsis 2/2 #1 Plan: 1. soft diet in am 2. dc IVF 3. OOB/ambulate 4. prn pain and nausea control 5. IV abx - may transition to augmentin upon dc x 14 days total 6. POLLO drain - discontinued 7. OK to dc from surgery standpoint - printed dc instructions and RX for augmentin and norco left on patient's chart. Patient instructed to make appt for 2 week follow up in surgery clinic. Thank you, please call with questions. Subjective Date of service: 01/08/22 Narrative: Patient seen and examined. He has no acute complaints. Has been afebrile today. T-max overnight was 100.9. He states he is tolerating a liquid diet. No further nausea or vomiting. He has been out of bed. Pain well controlled. Objective Vital Signs - 12hr 01/07/22 01/08/22 01/08/22 23:32 00:46 05:20 Temperature 99.5 F Pulse Rate 80 Respiratory 20 18 18 Rate Blood Pressure 103/55 O2 Sat by Pulse 95 Oximetry 01/08/22 01/08/22 08:48 08:52 Temperature Pulse Rate Respiratory 20 20 Rate Blood Pressure O2 Sat by Pulse 95 Oximetry - General physical appearance Narrative Exam: Gen.: Awake, alert, oriented x3. No apparent distress ENT: Trachea midline. No lymphadenopathy. No scleral icterus or conjunctival pallor CV: S1, S2 present Respiratory: No audible wheezes Abdomen: Soft, mildly distended, nontender. Incisions are clean, dry, intact. POLLO drain is serosanguineous. The drain was taken off suction and skin suture cut, drain removed in its entirety. Foam dressing applied. No rebound, rigidity, guarding Extremities: No clubbing, cyanosis, edema - Labs 01/06/22 05:31 01/07/22 10:01
--- NOTE | 2022-01-08 15:28 | Discharge Summary ---
Providers - Providers Date of Admission: 01/06/22 10:28 Attending physician: NOAH RUEDA MD 01/05/22 16:38 Consult to Physician [CONS] Urgent Comment: Consulting Provider: DEV LANZA Physician Instructions: Reason For Exam: acute appendicitis Primary care physician: PORCELAIN TECHNICIAN Hospitalization Condition: Stable Hospital course: POLLO drain removed today. Surgery started on soft diet, currently tolerating liquids. Had 2 BMs today. Stable vital signs. No acute distress with clear lungs and normal cardiac rhythm. Abdomen feels benign. No extremity edema. General surgery cleared him for discharge on Augmentin x2 weeks along with [place]. Prescriptions were sent by general surgery. Discharging patient as per Areli recommendations. Patient is to see general surgery in 2 weeks for follow-up. Core Measure Documentation - Palliative Care Palliative Care/ Comfort Measures: Not Applicable Exam - Constitutional Vitals: Temp Pulse Resp BP Pulse Ox 99.5 F 80 20 103/55 95 01/08/22 05:20 01/08/22 05:20 01/08/22 08:52 01/08/22 05:20 01/08/22 08:52 General appearance: Present: no acute distress - Neck Neck: Present: supple - Respiratory Respiratory effort: normal Respiratory: bilateral: CTA - Cardiovascular Rhythm: regular - Extremities Extremities: No edema - Abdominal General gastrointestinal: Present: soft, non-tender, non-distended, normal bowel sounds - Musculoskeletal Musculoskeletal: strength equal bilaterally - Psychiatric Psychiatric: appropriate mood/affect - Neurologic Neurologic: no focal deficits Plan Activity: advance as tolerated Diet: advance as tolerated Follow up with: DEV LANZA DO [Staff Physician] - 14 Days PRIMARY CARE, [Primary Care Provider] - 7 Days Prescriptions: Amoxicillin/K Clav Tab [Augmentin 875MG TAB] 1 tab PO Q12HR 12 Days #24 tab HYDROcodone/APAP 5-325 [[place] 5-325 mg TAB] 1 each PO Q4H PRN #15 tablet PRN Reason: Pain , Severe (7-10)
== END 2022-01-08 19:14 | disposition home or self-care (01) | DRG 854 ==
LOC: ED 14:11 → 3A 17:01 → OBSVTOIN 01-06 10:28
PROVIDERS: ADMIT Internal Medicine; ATTEND Internal Medicine
PROC: 0DTJ4ZZ Resection of Appendix, Percutaneous Endoscopic Approach (ICD-10-PCS; principal; 2022-01-06)
DX: A41.89 Other specified sepsis (principal); K35.891 Other acute appendicitis without perforation, with gangrene; E87.1 Hypo-osmolality and hyponatremia
CPT/HCPCS: 36415; 74177; 80048; 80053; 81001; 82140; 82247; 82248; 85025; 87040; 88304; 96365; 96375; 99285; G0378; J3490; J1100; J1170; J1885; J2270; J2405; J2543; J2704; J3010; J7030; J7120; Q9967